=== PATIENT | male | born 1960 | race Caucasian/White ===

== ENCOUNTER 2024-06-27 15:50 | Emergency (ER) | payer SELFPAY ==
[2024-06-27] VITALS (21 sets, daily range): BP systolic 70–105; BP diastolic 29–64; PULSE 62–92; RESP 15–22; TEMP 29.5–36.4; O2SAT 99–100; BMI 12.9
--- NOTE | 2024-06-27 15:53 | CT_ITS ---
PROCEDURE INFORMATION: Exam: CT Cervical Spine Without Contrast Exam date and time: 06/27/2024 4:29 PM Age: 63 years old Clinical indication: Other: Found unresponsive; Additional info: Found down, intubated TECHNIQUE: Imaging protocol: Computed tomography of the cervical spine without contrast. Radiation optimization: All CT scans at this facility use at least one of these dose optimization techniques: automated exposure control; mA and/or kV adjustment per patient size (includes targeted exams where dose is matched to clinical indication); or iterative reconstruction. COMPARISON: CT HEAD/BRAIN WO CON 06/27/2024 4:29 PM FINDINGS: Bones: No acute fracture. Normal alignment. No significant disc bulge or herniation. No severe spinal canal stenosis. No significant neural foraminal narrowing. Lungs: Lung apices are normal. Soft tissues: Unremarkable. IMPRESSION: No acute findings.
--- NOTE | 2024-06-27 15:53 | CT_ITS ---
PROCEDURE INFORMATION: Exam: CTA Head With Contrast, Arteriography Exam date and time: 06/27/2024 4:37 PM Age: 63 years old Clinical indication: Other: Found unresponsive; Additional info: Found down, intubated TECHNIQUE: Imaging protocol: Computed tomographic angiography of the head with contrast. Exam focused on the arteries. 3D rendering (Not supervised by radiologist): MIP and/or 3D reconstructed images were created by the technologist. Radiation optimization: All CT scans at this facility use at least one of these dose optimization techniques: automated exposure control; mA and/or kV adjustment per patient size (includes targeted exams where dose is matched to clinical indication); or iterative reconstruction. Contrast material: ISOVUE 370; Contrast volume: 120 ml; Contrast route: INTRAVENOUS (IV); COMPARISON: CT HEAD/BRAIN WO CON 06/27/2024 4:29 PM FINDINGS: ANTERIOR CIRCULATION: Right internal carotid artery: Calcification involving the right carotid siphon without significant stenosis. Right middle cerebral artery: No occlusion or significant stenosis. No aneurysm. Right anterior cerebral artery: Hypoplastic right REESE A1 segment. Left internal carotid artery: Calcification involving the left carotid siphon with moderate stenosis. Left middle cerebral artery: No occlusion or significant stenosis. No aneurysm. Left anterior cerebral artery: No occlusion or significant stenosis. No aneurysm. 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 Left vertebral artery: Calcification involving the left vertebral artery with moderate stenosis. Basilar artery: No occlusion or significant stenosis. No aneurysm. Right posterior cerebral artery: No occlusion or significant stenosis. No aneurysm. Left posterior cerebral artery: No occlusion or significant stenosis. No aneurysm. IMPRESSION: 1. 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 2. Moderate stenosis involving the left carotid siphon. 3. Moderate stenosis involving the left vertebral artery V4 segment.
--- NOTE | 2024-06-27 15:53 | CT_ITS ---
PROCEDURE INFORMATION: Exam: CTA Abdomen and Pelvis With Contrast Exam date and time: 06/27/2024 4:40 PM Age: 63 years old Clinical indication: Other: Found unresponsive; Additional info: Found down, intubated TECHNIQUE: Imaging protocol: Computed tomographic angiography of the abdomen and pelvis with contrast. Exam focused on the arteries. 3D rendering (Not supervised by radiologist): MIP and/or 3D reconstructed images were created by the technologist. Radiation optimization: All CT scans at this facility use at least one of these dose optimization techniques: automated exposure control; mA and/or kV adjustment per patient size (includes targeted exams where dose is matched to clinical indication); or iterative reconstruction. Contrast material: ISOVUE 370; Contrast volume: 120 ml; Contrast route: INTRAVENOUS (IV); COMPARISON: CT ANGIO CHEST 06/27/2024 4:40 PM FINDINGS: Aorta: Extensive atherosclerotic changes of the abdominal aorta without aneurysm or occlusion. Celiac trunk and mesenteric arteries: Celiac artery arises off of the SMA. No significant narrowing of the origin of the SMA. Renal arteries: Lqibvdeq-tn-xcmbjp atherosclerotic narrowing of the origin of the renal arteries. Right iliac arteries: Severe narrowing of the origin of the right common iliac artery and the internal iliac artery. Multifocal evux-di-jvusgqzz and moderate atherosclerotic narrowing of the right external iliac artery and rmcnltth-ft-tibtov narrowing of the right common femoral artery. Left iliac arteries: Iyaftwrs-xy-bcbbto atherosclerotic narrowing of the proximal left common iliac artery and internal iliac artery. Multifocal moderate narrowing of the left external iliac artery and qnalchhn-vl-uuaptb narrowing of the left common femoral artery. Liver: Fatty liver changes. Liver otherwise unremarkable. Gallbladder and biliary ducts: Gallbladder not well distended which limits assessment. Dilated extrahepatic CBD measuring up to 13 mm extending to the ampulla. Associated mild central intrahepatic bile duct dilatation. Pancreas: Pancreatic duct diffusely mildly dilated measuring up to 5 mm in the pancreatic head. Pancreas otherwise unremarkable. Spleen: Wedge-shaped low-density area in the superolateral spleen measuring 2.5 cm that may reflect splenic infarct. Adrenal glands: Unremarkable. No mass. Kidneys and ureters: Subcentimeter low-density lesions in the inferior left kidney in the anterior mid left kidney too small to characterize but likely cyst. No follow-up advised. Kidneys and ureters otherwise unremarkable with no obstructing stones or uropathy. Stomach and bowel: Small bowel is diffusely fluid distended without evident wall thickening. Possible increase enhancement of the wall of the small bowel. No evident pneumatosis. No evident free air. Appendix: No evidence of appendicitis. Intraperitoneal space: See Stomach and bowel finding. Lymph nodes: Unremarkable. No enlarged lymph nodes. Urinary bladder: Bladder decompressed with Martinez catheter. Reproductive: Unremarkable as visualized. Bones/joints: No acute fracture. Soft tissues: Unremarkable. IMPRESSION: 1. Fluid distended small bowel loops noted suggesting possible ileus. 2. Potential hyperenhancement of the wall of the small bowel loops that might be accentuated by the CTA technique but can be associated with CT hypotension complex in the proper clinical setting. 3. Extensive atherosclerotic changes of the aorta and branch vessels with severe narrowing of the right iliac arteries and cdniarqd-qh-qucjgf narrowing of the left iliac arteries. Hffvrdyy-fx-slmxta narrowing of the common femoral arteries and both renal arteries. 4. Wedge-shaped low-density area in the superior spleen suggesting possible recent splenic infarct. 5. Dilated bile ducts and pancreatic duct of uncertain etiology. Advise further assessment with nonemergent MRI of the abdomen with and without contrast. 6. Additional nonemergent findings as abTove.
--- NOTE | 2024-06-27 15:53 | XR_ITS ---
PROCEDURE INFORMATION: Exam: XR Chest Exam date and time: 06/27/2024 3:46 PM Age: 63 years old Clinical indication: Injury or trauma; Other: Found down, tubed TECHNIQUE: Imaging protocol: Radiologic exam of the chest. Views: 1 view. COMPARISON: No relevant prior studies available. FINDINGS: Tubes, catheters and devices: ETT 8.4 cm above the stefani. Lungs: Unremarkable. No consolidation. Pleural spaces: Unremarkable. No pleural effusion. No pneumothorax. Heart/Mediastinum: Unremarkable. No cardiomegaly. Bones/joints: Unremarkable. IMPRESSION: No acute disease. ETT 8.4 cm above the stefani. Consider advancing the ETT 3 cm for better position.
--- NOTE | 2024-06-27 15:53 | CT_ITS ---
PROCEDURE INFORMATION: Exam: CTA Chest With Contrast Exam date and time: 06/27/2024 4:40 PM Age: 63 years old Clinical indication: Other: Found unresponsive; Additional info: Found down, intubated TECHNIQUE: Imaging protocol: Computed tomographic angiography of the chest with contrast. Exam focused on the arteries. 3D rendering (Not supervised by radiologist): MIP and/or 3D reconstructed images were created by the technologist. Radiation optimization: All CT scans at this facility use at least one of these dose optimization techniques: automated exposure control; mA and/or kV adjustment per patient size (includes targeted exams where dose is matched to clinical indication); or iterative reconstruction. Contrast material: ISOVUE 370; Contrast volume: 120 ml; Contrast route: INTRAVENOUS (IV); COMPARISON: CR XR CHEST PORTABLE 06/27/2024 3:46 PM FINDINGS: Pulmonary arteries: Normal. No pulmonary emboli. Aorta: Unremarkable. No aortic aneurysm. No aortic dissection. Lungs: Unremarkable. No consolidation. No masses. Pleural spaces: Unremarkable. No pneumothorax. No pleural effusion. Heart: Unremarkable. No cardiomegaly. No pericardial effusion. Lymph nodes: Unremarkable. No enlarged lymph nodes. Bones/joints: Unremarkable. No acute fracture. Soft tissues: Unremarkable. IMPRESSION: No acute findings.
--- NOTE | 2024-06-27 15:53 | CT_ITS ---
PROCEDURE INFORMATION: Exam: CT Lumbar Spine Without Contrast Exam date and time: 06/27/2024 4:35 PM Age: 63 years old Clinical indication: Other: Found unresponsive; Additional info: Found down, intubated TECHNIQUE: Imaging protocol: Computed tomography of the lumbar spine without contrast. Radiation optimization: All CT scans at this facility use at least one of these dose optimization techniques: automated exposure control; mA and/or kV adjustment per patient size (includes targeted exams where dose is matched to clinical indication); or iterative reconstruction. COMPARISON: CT THORACIC SPINE WO CON 06/27/2024 4:32 PM FINDINGS: Bones/joints: No acute fracture. Normal alignment. No significant disc bulge or herniation. No severe spinal canal stenosis. No significant neural foraminal narrowing. Soft tissues: Unremarkable. IMPRESSION: No acute findings.
--- NOTE | 2024-06-27 15:53 | CT_ITS ---
PROCEDURE INFORMATION: Exam: CT Head Without Contrast Exam date and time: 06/27/2024 4:29 PM Age: 63 years old Clinical indication: Other: Found unresponsive; Additional info: Found down, intubated TECHNIQUE: Imaging protocol: Computed tomography of the head without contrast. Radiation optimization: All CT scans at this facility use at least one of these dose optimization techniques: automated exposure control; mA and/or kV adjustment per patient size (includes targeted exams where dose is matched to clinical indication); or iterative reconstruction. COMPARISON: CT CERVICAL SPINE WO CON 06/27/2024 4:29 PM FINDINGS: Brain: No intracranial hemorrhage. Mild atrophic changes of the ventricles and subarachnoid spaces. Mild chronic small-vessel ischemic changes noted. No mass, mass effect or midline shift. Intracranial atherosclerotic changes are noted. Cerebral ventricles: See Brain finding. Paranasal sinuses: Opacified hypoplastic right frontal sinus and opacification of a solitary posterior left ethmoid air cell. Sinuses otherwise clear. No fluid levels. Mastoid air cells: Visualized mastoid air cells are well aerated. Bones: Unremarkable. No acute fracture. Soft tissues: Unremarkable. IMPRESSION: 1. No acute intracranial abnormality. Chronic changes as above. 2. Incidental paranasal sinus disease of uncertain acuity but I suspect is chronic.
--- NOTE | 2024-06-27 15:53 | CT_ITS ---
PROCEDURE INFORMATION: Exam: CT Thoracic Spine Without Contrast Exam date and time: 06/27/2024 4:32 PM Age: 63 years old Clinical indication: Other: Found unresponsive; Additional info: Found down, intubated TECHNIQUE: Imaging protocol: Computed tomography of the thoracic spine without contrast. Radiation optimization: All CT scans at this facility use at least one of these dose optimization techniques: automated exposure control; mA and/or kV adjustment per patient size (includes targeted exams where dose is matched to clinical indication); or iterative reconstruction. COMPARISON: CT CERVICAL SPINE WO CON 06/27/2024 4:29 PM FINDINGS: Bones/joints: No acute fracture. Normal alignment. No significant disc bulge or herniation. No severe spinal canal stenosis. No significant neural foraminal narrowing. Soft tissues: Unremarkable. Coronary arteries: Extensive coronary artery calcifications suggesting coronary artery disease. IMPRESSION: 1. No acute abnormality. 2. Extensive coronary artery calcifications suggesting coronary artery disease.
--- NOTE | 2024-06-27 15:53 | CT_ITS ---
PROCEDURE INFORMATION: Exam: CTA Neck With Contrast Exam date and time: 06/27/2024 4:37 PM Age: 63 years old Clinical indication: Other: Found unresponsive; Additional info: Found down, intubated TECHNIQUE: Imaging protocol: Computed tomographic angiography of the neck with contrast. Exam focused on the cervical segments of the vasculature. 3D rendering (Not supervised by radiologist): MIP and/or 3D reconstructed images were created by the technologist. Radiation optimization: All CT scans at this facility use at least one of these dose optimization techniques: automated exposure control; mA and/or kV adjustment per patient size (includes targeted exams where dose is matched to clinical indication); or iterative reconstruction. Contrast material: ISOVUE 370; Contrast volume: 120 ml; Contrast route: INTRAVENOUS (IV); COMPARISON: CT CERVICAL SPINE WO CON 06/27/2024 4:29 PM FINDINGS: Tubes, catheters and devices: Endotracheal tube terminates above the stefani. Right common carotid artery: Calcification of the distal right common carotid artery. Stenosis measures less than 50%. Right internal carotid artery: Calcification of the proximal right ICA without significant stenosis. Right external carotid artery: No occlusion or stenosis of the origin. Left common carotid artery: Calcification at the left common carotid bifurcation without significant stenosis. Left internal carotid artery: Calcification of the proximal left ICA. Mild stenosis measures less than 50%. Left external carotid artery: No occlusion or stenosis of the origin. Right vertebral artery: Calcification of the proximal right vertebral artery without significant stenosis. Left vertebral artery: Left vertebral artery is dominant. Mild left vertebral artery calcification without significant stenosis. Right subclavian artery: Moderate stenosis of the right subclavian artery. Aorta: Aortic calcification. Veins: There is intravascular venous gas likely from IV access. Soft tissues: Normal. No significant soft tissue swelling. Bones/joints: Degenerative change involving the spine. Lungs: Pulmonary emphysema. IMPRESSION: No hemodynamically significant stenosis. REFERENCES: NASCET CRITERIA. The degree of stenosis in the cervical segment of the internal carotid artery is based on NASCET criteria. Normal is no stenosis. Mild is less than 50% stenosis. Moderate is 50-69% stenosis. Severe is 70% to 99% stenosis. Total occlusion is no detectable patent lumen.
--- NOTE | 2024-06-27 15:54 | PC.NURSE ---
pt was intubated on arrival to our facility
--- NOTE | 2024-06-27 16:00 | ECG_ITS ---
APPROVED REPORT Exam: Resting ECG HR:78 bpm ECG Measurements Heart Rate 78 AXES QRSd 79 QRS 65 QT 376 T 269 QTc 409 Conclusion SUPRAVENTRICULAR RHYTHM LOW QRS VOLTAGE [QRS DEFLECTION < 0.5/1.0 mV IN LIMB/CHEST LEADS] POSSIBLE RIGHT VENTRICULAR CONDUCTION DELAY [RSR (QR) IN V1/V2] Electronically signed by : ERICKSON CORDOBA, 06/29/2024 08:32:40
--- NOTE | 2024-06-27 16:00 | PC.NURSE ---
pt was brought in by [facility] after family called 911 due to pt being unresponsive and then stopped breathing. family performed CPR until EMS arrived. Pulse returned after 3 rounds of cardiac epi and due to hyoptensive pressures they gave 2 1ml doses of push dose epi. 2mg total of atropine for bradycardia from EMS. pt currently intubated tube 7.5 21 @ the lip. pupils currently 3mm nonreactive bilaterally. fsbs 285. Family currently @ bedside with
--- NOTE | 2024-06-27 16:05 | PC.NURSE ---
nurse placed stephen jeff on pt at this time
--- NOTE | 2024-06-27 16:07 | HMH.EDGENADL ---
Discharge Plan Disposition Chief Complaint: Cardiac Arrest/CPR Referrals Follow up/Referrals: Horace Duvall [Primary Care Provider] - See instructions Clinical Impressions Clinical Impression: Cardiac arrest, Acute hypoxemic respiratory failure, DIC (disseminated intravascular coagulation), Pancreatitis, Shock, Metabolic acidosis, Rhabdomyolysis, Acute cholangitis Print Language Print Language: Urdu Discharge ED Provider: Tito Padilla General Adult HPI General Chief complaint: Cardiac Arrest/CPR Stated complaint: cardiac arrest Time Seen by Provider: 06/27/24 15:52 History of Present Illness HPI narrative: Please note that above description of symptoms, in this electronic medical record under categorization of recalled from ER triage doctor by RN are reflective of an initial nursing assessment, however, is not reflective of my full history and physical exam that was personally taken and clarified. Consequentially, this preceding description of symptoms, which may include the patient's categorized chief complaint in the EMR, do not reflect my personal clinical impression, and the ultimate description of history of present illness and patient stated complaints should be deferred to this section of the note. Unless stated otherwise or congruent with this section of the note, additional signs, symptoms, or incongruence should be interpreted as inaccurate with my clinical impression. Related Data Allergies Allergy/AdvReac Type Severity Reaction Status Date / Time No Known Allergies Allergy Verified 06/27/24 16:22 [facility] Disclaimer: The information contained in this section may have been updated after the patient was seen, as this information can be updated by other users. Social History Smoking Status: Current every day smoker alcohol intake: never current occupational status: unemployed ROS Obtained: Yes unobtainable due to mental status and Yes unobtainable due to endotracheal tube Physical Exam General General appearance: cachectic and other (intubated, off sedation, GCS 3) Head Head exam: atraumatic and normocephalic Eye Eye exam: Present other (Eyes are sunken. Pupils 3 mm and nonreactive bilaterally.) ENT ENT exam: Present mucous membranes dry Neck Neck exam: Present trachea midline Chest Chest inspection: Present normal inspection and symmetric chest wall rise Respiratory Respiratory exam: Present normal lung sounds bilaterally (Decreased breath sounds, but no focal breath sounds); Absent wheezes Cardiovascular Cardiovascular exam: Present bradycardia Abdominal Exam Abdominal exam: Absent distention exam: Present normal inspection Extremities Exam Extremities exam: Present normal inspection Back Exam Back exam: Present normal inspection Neurological Exam Neurological exam: Present other (GCS 3 T off sedation) Skin Skin exam: Present warm and dry Medical Decision Making Medical Records Medical records reviewed: Yes I reviewed the patient's medical records. Screening: Per USPSTF and CDC recommendations, given the prevalence of disease in our region, it is our hospital?s policy to screen for HIV and viral Hepatitis for all patients aged 18 and over and those with ongoing risk factors. Landon Inquiry Pt receiving controlled substance: No Landon was queried for this patient: No Vital Signs: 06/27/24 15:50 06/27/24 15:51 06/27/24 16:07 Temperature 87.4 F L 85.1 F L Temperature Source Rectal Pulse Rate 75 Pulse Rate [Right] 62 Respiratory Rate 18 16 21 Blood Pressure 74/43 L Blood Pressure [Right Arm] 82/43 L Blood Pressure Mean [Right Arm] 56 02 Sat by Pulse Oximetry 100 100 Oxygen Delivery Method Ambu-Bag Mechanical Ventilation 06/27/24 16:10 06/27/24 16:18 06/27/24 16:19 Temperature 85.6 F L 86.4 F L 86.5 F L Temperature Source Pulse Rate 80 80 81 Pulse Rate [Right] Respiratory Rate 20 19 22 Blood Pressure 70/43 L 76/59 L 95/56 L Blood Pressure [Right Arm] Blood Pressure Mean [Right Arm] 02 Sat by Pulse Oximetry 100 100 99 Oxygen Delivery Method Mechanical Ventilation Mechanical Ventilation Mechanical Ventilation 06/27/24 16:20 06/27/24 16:50 06/27/24 16:53 Temperature 86.5 F L 86.9 F L Temperature Source Pulse Rate 71 92 H 92 H Pulse Rate [Right] Respiratory Rate 19 Blood Pressure 84/48 L 87/53 L 77/33 L Blood Pressure [Right Arm] Blood Pressure Mean [Right Arm] 02 Sat by Pulse Oximetry 99 100 100 Oxygen Delivery Method Mechanical Ventilation Mechanical Ventilation Mechanical Ventilation 06/27/24 17:01 06/27/24 17:10 06/27/24 17:20 Temperature 86.9 F L 86.9 F L 87.1 F L Temperature Source Pulse Rate 81 84 65 Pulse Rate [Right] Respiratory Rate Blood Pressure 83/38 L 87/53 L 94/38 L Blood Pressure [Right Arm] Blood Pressure Mean [Right Arm] 02 Sat by Pulse Oximetry 100 100 100 Oxygen Delivery Method Mechanical Ventilation Mechanical Ventilation Mechanical Ventilation 06/27/24 17:30 06/27/24 17:40 06/27/24 17:50 Temperature 87.3 F L 87.6 F L 88.0 F L Temperature Source Pulse Rate 89 75 67 Pulse Rate [Right] Respiratory Rate Blood Pressure 78/29 L 91/39 L 90/44 L Blood Pressure [Right Arm] Blood Pressure Mean [Right Arm] 02 Sat by Pulse Oximetry 100 100 100 Oxygen Delivery Method Mechanical Ventilation Mechanical Ventilation Mechanical Ventilation Lab Data Lab Results 06/27/24 15:54: Fibrinogen 90 L 06/27/24 15:59: WBC 5.7, RBC 2.73 L, Hgb 10.4 L, Hct 32.5 L, MCV 119.0 H, MCH 38.0 H, MCHC 31.9, RDW 14.4, Plt Count 69 L, MPV 10.4, Neut % (Auto) 48.3, Lymph % (Auto) 45.2, Gage % (Auto) 5.8, Eos % (Auto) 0.3, Baso % (Auto) 0.4, Neut # (Auto) 2.8, Lymph # (Auto) 2.6, Gage # (Auto) 0.3, Eos # (Auto) 0.0, Baso # (Auto) 0.0, PT 14.4 H, INR 1.32 H, APTT 32.2 H, Sodium 140, Potassium 3.2 L, Chloride 112 H, Carbon Dioxide < 5 L*, Anion Gap 26.2 H, BUN 15, Creatinine 1.20, Estimated Creat Clear 35, Estimated GFR 61, Est GFR ( Amer) 74, Glucose 270 H, Lactate 6.3 H, Calcium 7.9 L, Magnesium 2.1, Total Bilirubin 3.2 H, AST 208 H, ALT 47, Alkaline Phosphatase 39, Total Creatine Kinase 864 H*, Troponin I < 0.01, NT-Pro-B Natriuret Pep 371 H, Total Protein 4.9 L, Albumin 2.9 L, Globulin 2.0, Albumin/Globulin Ratio 1.5, Lipase 3862 H, TSH 19.30 H, Thyroxine (T4) 6.8, Salicylates < 1.0 L, Acetaminophen , Plasma/Serum Alcohol < 10 06/27/24 16:05: VBG pH 6.96 L, VBG pCO2 22.8 L, VBG pO2 188.4 H, VBG HCO3 5.0 L, VBG Total CO2 5.7 L, VBG O2 Saturation 98.7 H, VBG Base Excess -26.9 L, VBG Lactic Acid 6.3 H 06/27/24 15:59 06/27/24 15:59 Orders (Tests/Meds): ED MEDICATIONS Generic Name Dose Route Start Last Admin Trade Name Janq PRN Reason Stop Dose Admin Ampicillin Sodium/Sulbactam 100 mls @ 200 mls/hr 06/27/24 16:00 06/27/24 16:50 Sodium 3 gm/ Sodium Chloride IV 07/07/24 15:59 200 mls/hr Q6H CHAPIS Administration Propofol 100 mls @ 0 mls/hr 06/27/24 15:56 Diprivan 10mg/Ml 100ml Bottle IV 07/27/24 15:55 CHAPIS Protocol 5 MCG/KG/MIN Norepinephrine Bitartrate 8 mg 258 mls @ 3.87 mls/hr 06/27/24 15:56 06/27/24 17:15 / Sodium Chloride IV 07/27/24 15:55 20 mcg/min .Q24H CHAPIS 38.7 mls/hr Titration Protocol 2 MCG/MIN Vancomycin HCl 750 mg/ Sodium 250 mls @ 125 mls/hr 06/27/24 16:45 06/27/24 17:04 Chloride IV 06/27/24 18:44 125 mls/hr ONCE ONE Administration Sodium Chloride 1,000 mls @ 999 mls/hr 06/27/24 16:30 06/27/24 16:50 Sod Chlor 0.9% 1000ml Bag IV 06/27/24 17:30 999 mls/hr .Q1H1M ONE Administration Sodium Bicarbonate 150 meq/ 1,150 mls @ 100 mls/hr 06/27/24 16:58 06/27/24 17:14 Dextrose IV 07/27/24 16:57 100 mls/hr .[id number] CHAPIS Administration Miscellaneous 1 each 06/27/24 16:00 06/27/24 17:25 Vancomycin Consult Request NOTAPPLIC 07/27/24 15:59 1 each CONSULT PHARMACY CHAPIS Administration Sodium Chloride 10 ml 06/27/24 16:45 06/27/24 16:46 Sodium Chloride 0.9% 10ml Syr (Rad Only) IV 07/27/24 16:44 10 ml NEEDED PRN Administration Maintain IV Site Discontinued Medications Generic Name Dose Route Start Last Admin Trade Name Stephen PRN Reason Stop Dose Admin Hydrocortisone Sodium Succinate 100 mg 06/27/24 16:58 06/27/24 17:13 Hydrocortisone Sod Succinate 100mg Vial IV 06/27/24 16:59 100 mg ONCE ONE Administration Lactated Ringer's 1,000 mls @ 999 mls/hr 06/27/24 15:52 06/27/24 16:21 Lactated Ringer's 1000 Ml Bag IV 06/27/24 16:52 999 mls/hr .Q1H1M ONE Administration Iopamidol 120 ml 06/27/24 16:45 06/27/24 16:46 Iopamidol-370 (76%);100ml Bottle IV 06/27/24 16:46 120 ml ONCE ONE Administration Sodium Bicarbonate 50 meq 06/27/24 16:30 06/27/24 16:31 Sodium Bicarb 8.4% 50ml Syringe (Crash Cart) IV 06/27/24 16:31 50 meq ONCE ONE Administration Sodium Bicarbonate 50 meq 06/27/24 16:30 06/27/24 16:31 Sodium Bicarb 8.4% 50ml Syringe (Crash Cart) IV 06/27/24 16:31 50 meq ONCE ONE Administration Sodium Chloride 100 ml 06/27/24 16:45 06/27/24 16:46 0.9 % Sodium Chloride 50 Ml Vial IV 06/27/24 16:46 100 ml ONCE ONE Administration ORDERS Category Date Time Status CT angio abdomen pelvis Stat Cat Scan 06/27/24 15:[address] angio chest - dissection Stat Cat Scan 06/27/24 15:[address] angio head Stat Cat Scan 06/27/24 15:[address] angio neck Stat Cat Scan 06/27/24 15:[address] cervical spine wo con Stat Cat Scan 06/27/24 15:[address] head/brain wo con Stat Cat Scan 06/27/24 15:[address] lumbar spine wo con Stat Cat Scan 06/27/24 15:[address] thoracic spine wo con Stat Cat Scan 06/27/24 15:53 Completed POCUS Point of Care (ER Only) Stat Exams 06/27/24 15:57 Taken XR chest portable Stat Exams 06/27/24 15:53 Completed Acetaminophen Stat Lab 06/27/24 15:59 Completed CK [Creatine Kinase] Stat Lab 06/27/24 15:59 Completed Complete Blood Count Auto Diff Stat Lab 06/27/24 15:59 Completed Comprehensive Metabolic Panel Stat Lab 06/27/24 15:59 Completed Ethanol [Ethyl Alcohol] Stat Lab 06/27/24 15:59 Completed Fibrinogen Stat Lab 06/27/24 15:54 Completed Lactic Acid Stat Lab 06/27/24 15:59 Completed Lipase Stat Lab 06/27/24 15:59 Completed Magnesium Stat Lab 06/27/24 15:59 Completed NT Pro Brain Natriuretic Pep. Stat Lab 06/27/24 15:59 Completed PT INR [Prothrombin Time INR] Stat Lab 06/27/24 15:59 Completed PTT [Activated Partial Thrombo Time] Stat Lab 06/27/24 15:59 Completed Salicylate Stat Lab 06/27/24 15:59 Completed T4 (Thyroxine) Stat Lab 06/27/24 15:59 Completed TSH [Thyroid Stimulating Hormone] Stat Lab 06/27/24 15:59 Completed Troponin I Q3H Lab 06/27/24 19:00 Ordered Troponin I Q3H Lab 06/27/24 22:00 Ordered Troponin I Stat Lab 06/27/24 15:59 Completed UDS [Drug Screen,Urine] Stat Lab 06/27/24 16:26 Ordered Blood Culture Stat Micro 06/27/24 15:59 Received Carboxyhemoglobin Stat RT 06/27/24 16:26 Ordered Venous Blood Gas Routine RT 06/27/24 16:05 Completed Medical Decision Narrative: 63-year-old male history of hypertension, hyperlipidemia, COPD still smoking and not on home oxygen, malnutrition generalized weakness and failure to thrive presenting with being found down. Daughter presents to bedside shortly after arrival and stabilization. States that she last talked to patient 4 days prior to this and he stated he felt under the weather. Since that time, she had not heard from him until trying to call him today, 06/27. States that he missed numerous phone calls, so family member went over to check on him. Family member arrived, patient was on the floor, unresponsive, still breathing. EMS was contacted. Prior to EMS arrival, patient stopped breathing. Family started chest compressions. About 20 minutes of bystander CPR performed. On arrival, EMS states that patient no pulse, not breathing spontaneously. 1 mg IV epinephrine was administered and chest compressions were continued. Patient received 3 mg of epinephrine total, multiple rounds of ACLS with return of spontaneous circulation. Patient was intubated by EMS crew and brought to the emergency department. On arrival, patient does have palpable carotid pulse. Initial set of vitals here after placing patient on monitor and continuous cardiac monitoring/pulse oximetry 82/43, heart rate 62, oxygen sat 100% on the ventilator. Patient hypothermic 87.4 degrees rectally. Rafaela hugger was placed, warmed fluids were started, temperature sensing Martinez was placed as well. Patient is emaciated, disheveled, GCS 3 T off sedation, no neurologic response to provocative testing, but intermittently spontaneously breathing. Unable to palpate radial or dorsalis pedis pulses, but I imagine this is probably due to patient's likely underlying peripheral arterial disease given clinical appearance. No traumatic abnormalities about the head, neck, chest, trunk, or extremities. Pelvis is stable. istory was obtained via conversation with EMS and family. Initial glucose greater than 200. EKG independently interpreted. Low voltages with significant background interference, but no obvious evidence of acute ischemic change. Appears to be regular, axis difficult to determine given low amplitudes and baseline changes. QRS narrow at 79, QTc appears to be normal 409. Initial inventions include 2 L fluid bolus with warmed fluids. Patient also received norepinephrine drip given diastolic blood pressures in the 40s. Bedside [id number] ultrasound was performed and demonstrated no evidence of right heart strain, tamponade, or other cardiac abnormality. IVC is collapsible and appears that it will be fluid responsive on the vent on independent interpretation. Chest x-ray performed, on independent to rotation, tube in adequate position, no evidence of pneumothorax. No obvious cardiopulmonary abnormality on bedside review of radiology images. [id number] VBG returned with pH 6.96, CO2 22, lactate 6.3, oxygen 188 after having been intubated. 2A of 50 mill equivalents of bicarb were pushed. Empiric antibiotics with vancomycin and Unasyn were administered shortly after arrival and confirmation of no medication allergies with family. Patient also received 100 mg of hydrocortisone and was started on isotonic bicarb drip in D5. Trauma scans were independently interpreted. No intracranial hemorrhage, no cervical spine, acute thoracic or lumbar spine injuries. CT angiogram of the head and neck without obvious acute large vessel occlusion. No evidence of dissection or pulmonary embolus. No evidence of pneumothorax. No pneumonia or airspace disease. CT angiogram of the abdomen with fluid-filled loops of bowel diffuse bowel wall edema concerning for global mesenteric ischemia without evidence of perforation, pneumatosis, portal venous gas, or other acute abnormality. Bile ducts appear dilated. Pancreas edematous. 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 CT angiogram of the abdomen and pelvis additional findings: Extensive atherosclerotic changes, wedge-shaped splenic abnormality concerning for infarct, dilated bile ducts. Further labs resulting. CBC with anemia hemoglobin just over 10, normal white count, platelets 69,000. Patient's INR 1.32, PTT 32 and fibrinogen significantly low at 90 concerning for potential DIC. Chemistry with normal sodium 140, potassium low at 3.2, creatinine 1.2/BUN 15. Calcium low 7.9, this was repleted 2 g calcium gluconate IV. AST 208, bilirubin 3.2. CK elevated at nearly 900. Nonactionable BNP or troponin. Lipase elevated 3800. TSH elevated 19, T4 normal at 6.8. Tox labs negative. Tissue perfusion reassessment performed at 1800. Patient still intubated, on norepinephrine drip. No meaningful neurologic response and off sedation. Out of concern for cardiac arrest, hypoxemic respiratory failure, DIC, rhabdomyolysis, hypotension induced mesenteric ischemia, possible bile duct obstruction with associated pancreatitis, DIC, patient requiring higher level of care. [facility] was contacted and case was discussed at length, graciously accepted to the medical ICU under Dr. Chavez. Repeat lactic acid pending at time of transfer. Still no neurologic response. Patient transferred to [facility] for further definitive management, neuro prognostication. Patient remained as medically stable as possible on aforementioned treatments prior to transfer. [employer] disclaimer Much of this encounter note is an electronic flanging roll operator spoken language to printed text. Electronic flanging roll operator of the spoken language may permit errors. Although I have reviewed the note, some errors may still exist. Critical Care Critical Care Time Critical Care Time: Yes (ID, neuro, cardiac, pulmonary) Attestation: On 06/27/24, the high probability of a clinically significant, sudden or life threatening deterioration of the following system(s) required my full and direct attention, intervention and personal management. The time I documented below is in addition to time spent performing reported procedures but includes the following listed in this critical care notation. Total Time Total Critical Care Time: 120
[2024-06-27 16:09] LABS: VBG Base Excess -26.9 mmol/L (-2.4-2.3); VBG Oxygen Saturation 98.7 % (50-70); VBG PO2 188.4 mmol/L (28-40); VBG Total CO2 5.7 mmol/L (23-27)
[2024-06-27 16:11] LABS: VBG PCO2 22.8 mmol/L (35-51); VBG PH 6.96 mmol/L (7.31-7.41)
[2024-06-27 16:12] LABS: Lactate Venous 6.3 mmol/L (0.4-2.0)
[2024-06-27 16:15] LABS: Albumin Level 2.9 g/dl (3.5-5.0); Chloride 112 mmol/L (98-107)
[2024-06-27] MEDS: NOREPINEPHRINE BITARTRATE 8 MG in 0.9 % SODIUM CHLORIDE 250 ML 15.48 MG IV (16:15)
[2024-06-27 16:16] LABS: Potassium 3.2 mmoL/L (3.5-5.1); Sodium 140 mmol/L (136-145)
[2024-06-27 16:18] LABS: Alanine Aminotransferase 47 U/L (12-78); Albumin/Globulin Ratio 1.5 (1.1-1.8); Alkaline Phosphatase 39 U/L (38-126); Aspartate Amino Transferase 208 U/L (17-59); Basophils % 0.4 % (0.1-2.0); Bilirubin,Total 3.2 mg/dl (0.2-1.3); Blood Urea Nitrogen 15 mg/dl (9-20); Eosinophils % 0.3 % (0.1-12.0); Hematocrit 32.5 % (42.0-52.0); Hemoglobin 10.4 g/dL (14.1-18.0); Lymphocytes # 2.6 K/mm3 (0.7-4.5); Lymphocytes % 45.2 % (10-50); Mean Corpuscular HGB Conc 31.9 g/dL (31.8-35.4); Mean Platelet Volume 10.4 fl (7.4-10.4); Monocytes # 0.3 K/mm3 (0.1-1.0); Monocytes % 5.8 % (1.7-9.3); Neutrophils # 2.8 K/mm3 (1.8-7.8); Neutrophils % 48.3 % (37.0-80.0); Platelet Count 69 K/mm3 (142-424); Red Blood Count 2.73 M/mm3 (4.60-6.20); Red Cell Distribution Width 14.4 % (11.5-17.5); Total Protein,Serum 4.9 g/dl (6.3-8.2); White Blood Count 5.7 K/mm3 (4.8-10.8)
[2024-06-27 16:19] LABS: Anion Gap 26.2 mEq/L (5-15); Calcium 7.9 mg/dl (8.4-10.2); Glucose 270 mg/dl (74-100); Magnesium 2.1 mg/dl (1.6-2.3)
[2024-06-27] MEDS: LACTATED RINGERS 1000ML 1,000 ML 999 ML IV (16:21)
[2024-06-27 16:22] LABS: Lactic Acid 6.3 mmol/L (0.7-2.1)
[2024-06-27 16:25] LABS: Activated Partial Thrombo Time 32.2 seconds (22.8-30.6); INR 1.32 (0.9-1.1); Prothrombin Time 14.4 seconds (10.1-12.5)
[2024-06-27 16:28] LABS: NT Pro Brain Natriuretic Pep. 371 pg/mL (0-125)
[2024-06-27] MEDS: SODIUM BICARB 8.4% 50ML SYRINGE (CRASH CART) 50 MEQ IV ×2 (16:31)
[2024-06-27 16:35] LABS: Creatinine Clearance Estimated 35 mL/min (50-200); Estimated Glomerular Filt Rate 61 ml/min (>60); GFR (African American) 74 ML/MIN (>60); Troponin I < 0.01 ng/ml (0.00-0.034)
[2024-06-27 16:36] LABS: T4 (Thyroxine) 6.8 ug/dl (5.53-11.0)
[2024-06-27] MEDS: SODIUM CHLORIDE 0.9% 10ML SYR (RAD ONLY) 10 ML IV (16:46)
[2024-06-27] MEDS: IOPAMIDOL-370 (76%);100ML BOTTLE 120 ML IV (16:46)
[2024-06-27] MEDS: 0.9 % SODIUM CHLORIDE 50 ML VIAL 100 ML IV (16:46)
[2024-06-27] MEDS: AMPICILLIN SODIUM/SULBACTAM 3 GM in 0.9 % SODIUM CHLORIDE 100 ML IV (16:50)
[2024-06-27] MEDS: 0.9 % SODIUM CHLORIDE 1000ML 1,000 ML 999 ML IV (16:50)
[2024-06-27 16:54] LABS: Salicylate < 1.0 mg/dL (2.0-20.0)
[2024-06-27] MEDS: VANCOMYCIN HCL 750 MG in 0.9 % SODIUM CHLORIDE 250 ML 125 MG IV (17:04)
[2024-06-27 17:05] LABS: Ethyl Alcohol < 10 mg/dl (0-10)
[2024-06-27 17:07] LABS: Creatine Kinase 864 U/L (55-170)
[2024-06-27] MEDS: HYDROCORTISONE SOD SUCCINATE 100MG VIAL 100 MG IV (17:13)
[2024-06-27] MEDS: SODIUM BICARBONATE 150 MEQ in DEXTROSE 5 % IN WATER 1,000 ML 100 MEQ IV (17:14)
[2024-06-27 17:20] LABS: Fibrinogen 90 mg/dL (229.9-363.5)
[2024-06-27 17:25] LABS: Lipase 3862 U/L (23-300)
[2024-06-27] MEDS: VANCOMYCIN CONSULT REQUEST 1 EACH NOTAPPLIC (17:25)
--- NOTE | 2024-06-27 17:32 | PC.NURSE ---
called transfer center for transfer stated pt would be icu and they are getting to speak with
[2024-06-27 17:45] LABS: Carbon Dioxide < 5 mmol/L (22.0-30.0)
--- NOTE | 2024-06-27 18:05 | PC.NURSE ---
call made to [facility] for air transport.
--- NOTE | 2024-06-27 18:07 | PC.NURSE ---
speaking with alexandre
--- NOTE | 2024-06-27 18:10 | PC.NURSE ---
[facility] accepted eta 36minutes
--- NOTE | 2024-06-27 18:11 | PC.NURSE ---
updating transfer center on eta of [facility] to our facility for transport
--- NOTE | 2024-06-27 18:23 | PC.NURSE ---
Report called to Zhen Morales RN at main ICU bed 7
--- NOTE | 2024-06-27 18:26 | PC.NURSE ---
transfer center called with updated eta on [facility] @ 25 minutes
[2024-06-27 18:56] LABS: Troponin I 0.07 ng/ml (0.00-0.034)
[2024-06-27 20:06] LABS: Reflex Lactic Add Lactic Reflex
== END 2024-06-27 19:37 | disposition short-term general hospital (02) ==
PROVIDERS: Emergency Provider Emergency Medicine; PCP Internal Medicine Cardiovascular Disease
DX: I46.9 Cardiac arrest, cause unspecified (principal); K83.09 Other cholangitis; M62.82 Rhabdomyolysis; E87.20 Acidosis, unspecified; R57.9 Shock, unspecified; K85.90 Acute pancreatitis without necrosis or infection, unspecified; D65 Disseminated intravascular coagulation [defibrination syndrome]; J96.01 Acute respiratory failure with hypoxia
CPT/HCPCS: 36415; 70450; 70496; 70498; 71045; 71275; 72125; 72128; 72131; 74174; 80053; 80320; 80329; 82550; 82803; 83605; 83690; 83735; 83880; 84436; 84443; 84484; 85025; 85384; 85610; 85730; 87040; 92950; 93005; 96361; 96374; 96375; 99291; 99292; G0480; J0295; J3370; J7030; J7060; J7120; Q9967